=== PATIENT | female | born 1950 | race African-American/Black ===

== ENCOUNTER 2018-05-28 19:33 | Emergency (ER) | payer OTHER, MEDICAID ==
[~2018-05-28] VITALS: Ht 167.6 cm; Wt 54.5 kg
[2018-05-28] MEDS ORDERED: TETANUS, DIPHTHERIA, PERTUSSIS VAC/PF 0.5ML (>7YR OLD) IM ONE (20:30)
[2018-05-28] MEDS ORDERED: LIDOCAINE 1%/EPI 1:100,000 10 ML VIAL IJ ONE (20:30)
[2018-05-28] MEDS ORDERED: BACITRACIN ZINC OINT UDPKT TOP ONE (20:30)
[2018-05-28 20:51] LABS: HEMATOCRIT. 36.4 % (36.0-48.0); HEMOGLOBIN. 12.4 g/dL (12.0-16.0); MEAN CORPUSCULAR HEMOGLOBIN 32.5 pg (28.0-32.0); MEAN CORPUSCULAR VOLUME 95.6 fL (81.0-99.0); MEAN PLATELET VOLUME 5.9 fl (7.4-10.4); PLATELET 191 x1000/uL (130-400); RED BLOOD CELL COUNT 3.81 mill/uL (4.2-5.4); RED CELL DISTRIBUTION WIDTH 13.4 % (11.6-14.6)
[2018-05-28 20:56] LABS: CHLORIDE 110 mEq/L (98-107)
[2018-05-28 20:59] LABS: PARTIAL THROMBOPLASTIN TIME 24.1 sec (23.4-31.0); PROTHROMBIN TIME 10.3 sec (9.6-11.0)
[2018-05-28] MEDS ORDERED: LIDOCAINE HCL/EPINEPHRINE 1%-EPI 1:100,000 20 ML VIAL MC NR (21:00)
[2018-05-28] MEDS ORDERED: HYDROCODONE/ACETAMINOPHEN 5/325MG TABLET PO ONE (21:00)
[2018-05-28 21:41] LABS: PLATELET ESTIMATE NORMAL
[2018-05-29 00:54] VITALS: BP 113/64
== END 2018-05-29 00:50 | disposition short-term general hospital (02) ==
LOC: ER 19:33 → CANBEDREQ 05-29 03:46
DX: S01.01XA Laceration without foreign body of scalp, initial encounter (principal); W19.XXXA Unspecified fall, initial encounter; Y93.89 Activity, other specified; Y92.89 Other specified places as the place of occurrence of the external cause; Y99.8 Other external cause status
CPT/HCPCS: 12001; 36415; 70450; 71045; 80053; 83690; 83880; 84484; 85025; 85610; 85730; 90471; 90715; 93005; 99285; J3490